=== PATIENT | male | born 1960 | race Caucasian/White ===

== ENCOUNTER 2017-03-03 00:35 | Emergency (ER) | payer SELFPAY ==
[~2017-03-03] VITALS: Ht 167.6 cm; Wt 71.0 kg
[2017-03-03 00:44] VITALS: BP 124/84
== END 2017-03-03 05:00 | disposition left against medical advice (07) ==
LOC: ER 05:00
DX: R10.9 Unspecified abdominal pain (principal); Z53.21 Procedure and treatment not carried out due to patient leaving prior to being seen by health care provider